=== PATIENT | male | born 1975 | race Caucasian/White ===

== ENCOUNTER 2024-12-01 14:38 | Emergency (ER) | payer MEDICAID ==
[~2024-12-01] VITALS: Ht 165.1 cm; Wt 100.0 kg
[2024-12-01 14:46] VITALS: O2SAT 97
[2024-12-01 14:49] VITALS: BP 141/89; PULSE 69; RESP 17; TEMP 36.8; O2SAT 97
[2024-12-01] MEDS: IBUPROFEN 600MG TABLET PO ONE (16:22)
[2024-12-01] MEDS: ACETAMINOPHEN 325MG TABLET PO ONE (16:22)
[2024-12-01] MEDS: BACITRACIN ZINC OINT UDPKT TOP ONE (16:23)
[2024-12-01] MEDS: LIDOCAINE HCL/PF 1% 10 MG/ML 5ML VIAL INFIL ONE (16:23)
[2024-12-01] MEDS: TETANUS, DIPHTHERIA, PERTUSSIS VAC/PF 0.5ML (>10YR OLD) IM ONE (16:23)
[2024-12-01] MEDS ORDERED: CEPH500C2 MT (17:55)
== END 2024-12-01 18:05 | disposition home or self-care (01) ==
LOC: ER 14:49
DX: S61.411A Laceration without foreign body of right hand, initial encounter (principal); E11.9 Type 2 diabetes mellitus without complications; W26.0XXA Contact with knife, initial encounter; Y93.89 Activity, other specified; Y92.89 Other specified places as the place of occurrence of the external cause; Y99.8 Other external cause status
CPT/HCPCS: 90715; 12001; 90471; 99284; J2003; Z7610 ×2